=== PATIENT | male | born 1980 | race Caucasian/White ===

== ENCOUNTER 2024-09-10 16:25 | Emergency (ER) | payer MEDICAID ==
[~2024-09-10] VITALS: Ht 175.3 cm; Wt 77.3 kg
[2024-09-10 16:32] VITALS: BP 109/87
[2024-09-10] MEDS ORDERED: RT ALBUTEROL CC18 GM IH (16:52)
== END 2024-09-10 17:00 | disposition home or self-care (01) ==
LOC: ED 16:25
DX: J45.21 Mild intermittent asthma with (acute) exacerbation (principal)